=== PATIENT | female | born 1950 | race American Indian/Alaskan Native ===

== ENCOUNTER 2017-06-10 09:38 | Outpatient (CLI) | payer MEDICARE ==
--- NOTE | 2017-06-10 14:25 | Ultrasound Report ---
ULTRASOUND PELVIC COMPLETE ULTRASOUND TRANSVAGINAL HISTORY: Pelvic pain, adnexal fullness. TECHNIQUE: Transabdominal and transvaginal ultrasound with color doppler interrogation. The uterus is anteverted and measures 11 x 5 x 7 cm. A 6.5 x 5.8 cm submucosal fibroid is identified in the posterior fundal region. The fibroid contains scattered calcifications but no cystic change. The endometrial stripe is not clearly identified on ultrasound. No obvious endometrial abnormality. The right ovary is not visualized. The left ovary is unremarkable measuring 1.5 x 1.1 x 1.8 cm. No pelvic fluid collection. IMPRESSION: Uterine fibroid. The right ovary is not visualized. The left ovary is normal.
== END 2017-06-10 09:39 | disposition home or self-care (01) ==
LOC: US 09:38
PROVIDERS: ATTEND Internal Medicine
DX: D25.0 Submucous leiomyoma of uterus (principal); N94.9 Unspecified condition associated with female genital organs and menstrual cycle; N85.4 Malposition of uterus
CPT/HCPCS: 76830; 76856

== ENCOUNTER 2019-05-20 08:06 | Day surgery (SDC) | payer MEDICARE ==
[2019-05-20] MEDS ORDERED: MARCAINE 0.5% INFILTRATI ONE ×2 (08:22→10:20)
[2019-05-20] MEDS ORDERED: XYLOCAINE 1% 20 mL ONE (08:22)
[2019-05-20 09:04] VITALS: BP 149/77
[2019-05-20] MEDS ORDERED: XYLOCAINE 1% 20 mL INFILTRATI ONE (10:20)
--- NOTE | 2019-05-20 10:59 | Procedure Note ---
Date of procedure: 05/20/19 Pre-op diagnosis: chronic low back pain Post-op diagnosis: same Procedure: Lumbar facet blocks left L2-5 Procedure The patient was brought to the OR and placed prone onto the OR table, the lumbar spine was prepped and draped in the usual sterile manner. A timeout procedure was done to identify the patient and the correct levels of nerve block being performed the patient was awake during the procedure. Using C-arm fluoroscopy the L5 for an levels were visualized in both the PA and 45 oblique views 20- gauge spinal needles were inserted again under direct fluoroscopic control after placing the spinal needles and the correct position and Marcaine injection was performed using 1% without epinephrine. The patient tolerated the procedure and no complications Anesthesia: local Surgeon: BILLY BACH Estimated blood loss: minimal Condition: stable Disposition: observation
--- NOTE | 2019-05-20 15:04 | XRay Report ---
LUMBAR SPINE 2 VIEWS HISTORY: Intraoperative images at left facet injections L2-5. COMPARISON: 09/23/2018 TECHNIQUE: 2 view(s) of the lumbar spine obtained. FINDINGS: Vertebrae: Normal alignment. No fracture or significant abnormality. Disc Spaces:No significant abnormality. Facet Joints:[place] are identified at the L2, L3, L4 and L5 facet joints on the left. Additional findings: None. IMPRESSION: 1. Facet joints L2-5 localized for injections. Signer Name: Toby Riojas MD Signed: 05/20/2019 3:00 PM Workstation Name: [id number]
== END 2019-05-20 10:50 | disposition home or self-care (01) ==
LOC: OR 08:06
PROVIDERS: ATTEND Orthopaedic Surgery
DX: M54.5 Low back pain (principal); G89.29 Other chronic pain; Z88.0 Allergy status to penicillin; Z79.899 Other long term (current) drug therapy; Z87.891 Personal history of nicotine dependence; Z98.49 Cataract extraction status, unspecified eye; Z98.890 Other specified postprocedural states
CPT/HCPCS: 72100

== ENCOUNTER 2019-06-03 08:15 | Day surgery (SDC) | payer MEDICARE ==
--- NOTE | 2019-05-27 11:31 | Procedure Note ---
Date of procedure: 05/20/19 Pre-op diagnosis: chronic low back pain Post-op diagnosis: same Anesthesia: local Surgeon: BILLY BACH Estimated blood loss: minimal Condition: stable Disposition: observation
[~2019-06-03 08:15] MED LIST: DEPO-Medrol ONE; MARCAINE 0.5% INFILTRATI ONE; XYLOCAINE 1% 20 mL ONE
--- NOTE | 2019-06-03 09:39 | Anesthesia Day of Surgery ---
Anesthesia Day of Surgery - Day of Surgery Patient Examined: Yes Patient H&P Reviewed: Yes Patient is NPO: Yes
--- NOTE | 2019-06-03 09:39 | Anesthesia Consultation ---
Anesthesia Consult and Med Hx Date of service: 06/03/19 - Airway Anesthetic Teeth Evaluation: Partials ROM Head & Neck: Adequate Mental/Hyoid Distance: Adequate Mallampati Class: Class II Intubation Access Assessment: Good - Pulmonary Exam CTA: Yes - Cardiac Exam Cardiac Exam: RRR - Pre-Operative Health Status ASA Pre-Surgery Classification: ASA2 (obesity) Proposed Anesthetic Plan: MAC - Pulmonary Hx Smoking: Yes (STOPPED X 10 YRS) Hx Sleep Apnea: No (DEVON PRE SCREEN HIGH RISK) - Cardiovascular System Hx Hypertension: No - Central Nervous System Hx Back Pain: Yes (NECK AND BACK PAIN) - Other Systems Hx Cancer: No
[2019-06-03] MEDS ORDERED: LACTATED RINGERS 1,000 ML ONE (09:40)
[2019-06-03] MEDS ORDERED: DEPO-Medrol ONE ×2 (10:22→11:02)
[2019-06-03] MEDS ORDERED: VERSED ONE (10:41)
[2019-06-03] MEDS ORDERED: DILAUDID ONE (10:41)
[2019-06-03] MEDS ORDERED: DIPRIVAN 10 MG/ML IV ONE (10:41)
[2019-06-03] MEDS ORDERED: XYLOCAINE MPF 2% ONE (10:42)
[2019-06-03] MEDS ORDERED: MARCAINE 0.5% INFILTRATI ONE (11:15)
[2019-06-03] MEDS ORDERED: XYLOCAINE 1% 20 mL INFILTRATI ONE (11:15)
[2019-06-03] MEDS ORDERED: DEPO-Medrol INTRA-ARTI ONE (11:15)
[2019-06-03] MEDS ORDERED: ZOFRAN IV PRN (11:51)
[2019-06-03] MEDS: DILAUDID IV PRN ×2 (11:55→12:05)
[2019-06-03 12:38] VITALS: BP 160/74
--- NOTE | 2019-06-03 13:25 | Post Anesthesia Evaluation ---
- Post Anesthesia Evaluation Patient Participated: Yes Airway Patent: Yes Stable Respiratory Function: Yes Nausea/Vomiting: No Temp > 96.8F: Yes Pain Manageable: Yes Adequeate Hydration: Yes Anesthesia Complications: No Block Receding Appropriately: Not Applicable Patient on Ventilator: No
--- NOTE | 2019-06-03 15:57 | XRay Report ---
Lumbosacral spine, 2 views INDICATION: LOWER BACK PAIN. COMPARISON: None. IMPRESSION: Fluoroscopy was provided by radiology during lumbar radiofrequency ablation by Dr. Maxi peck. PA and lateral fluoroscopic images of the lumbar spine demonstrate needle placement from L2-L5 on the left side for radiofrequency ablation. There is moderate degenerative disc disease and hypertroph ic facet arthropathy at all levels. No evidence for fracture, malalignment or bone lesion. Please co rrelate with the procedural report as needed. 27 seconds of fluoroscopy time was utilized. Signer Name: Mike Abad Jr, MD Signed: 06/03/2019 3:52 PM Workstation Name: [id number]
[2019-06-03] MEDS ORDERED: LACTATED RINGERS 1,000 ML IV SCH (16:00)
== END 2019-06-03 13:05 | disposition home or self-care (01) ==
LOC: OR 08:15
PROVIDERS: ATTEND Orthopaedic Surgery
DX: M51.36 Other intervertebral disc degeneration, lumbar region (principal); M47.816 Spondylosis without myelopathy or radiculopathy, lumbar region; M12.88 Other specific arthropathies, not elsewhere classified, other specified site; Z87.891 Personal history of nicotine dependence; Z79.899 Other long term (current) drug therapy; Z88.0 Allergy status to penicillin; Z98.49 Cataract extraction status, unspecified eye; Z98.890 Other specified postprocedural states
CPT/HCPCS: 64493; 64494; 64495; 72100; A4649; J1030; J1170; J2250; J2704; J7120

== ENCOUNTER 2019-07-12 10:39 | Outpatient (CLI) | payer MEDICARE ==
--- NOTE | 2019-07-12 11:47 | XRay Report ---
Bilateral shoulders, 3 views INDICATION: BILATERAL SHOULER PAIN. COMPARISON: None. IMPRESSION: Normal bone mineralization. Moderate to severe osteoarthritic changes are identified at both shoulders. The left glenohumeral joint appears most affected. There is evidence for previous rot ator cuff repair on the right side. No evidence for fracture, dislocation or bone lesion. The soft t issues are unremarkable. Signer Name: Mike Abad Jr, MD Signed: 07/12/2019 11:42 AM Workstation Name: [id number]
== END 2019-07-12 10:40 | disposition home or self-care (01) ==
LOC: XRAY 10:39
PROVIDERS: ATTEND Orthopaedic Surgery
DX: M19.012 Primary osteoarthritis, left shoulder (principal); M19.011 Primary osteoarthritis, right shoulder

== ENCOUNTER 2019-09-14 11:59 | Outpatient (CLI) | payer MEDICARE ==
--- NOTE | 2019-09-15 10:56 | Mammography Report ---
DIGITAL SCREENING MAMMOGRAM WITH CAD, 09/14/2019 INDICATION: Routine screening mammography. TECHNIQUE: Digital bilateral 2D mammography was obtained in the craniocaudal and mediolateral obliq ue projections. This examination was interpreted with the benefit of Computer-Aided Detection analysi s. COMPARISON: 08/31/2018 FINDINGS: Breast Density: There are scattered areas of fibroglandular density. There is no evidence of dominant mass, suspicious calcifications or architectural distortion in eithe r breast. IMPRESSION: No mammographic evidence of malignancy. Follow up recommendation: Routine yearly No mammographic evidence of malignancy. A "normal" or negative report should not discourage follow up or biopsy of a clinically significant f inding. A written summary of these findings will be mailed to the patient. The patient will be entered into a mammography reporting system which will generate a reminder letter for the patient's next appointmen t at the appropriate interval. The [employer] recommends yearly mammograms starting at age 40 and continuing as l ladonna as a woman is in good health. Breast MRI is recommended for women with an approximate 20-25% or greater lifetime risk of breast cancer, including women with a strong family history of breast or ova violeta cancer or who have been treated for Hodgkin's disease. Signer Name: Toby Riojas MD Signed: 09/15/2019 10:52 AM Workstation Name: [id number]
== END 2019-09-14 12:00 | disposition home or self-care (01) ==
LOC: MAMMO 11:59
PROVIDERS: ATTEND Internal Medicine
DX: Z12.31 Encounter for screening mammogram for malignant neoplasm of breast (principal); Z88.0 Allergy status to penicillin
CPT/HCPCS: 77067

== ENCOUNTER 2020-09-15 09:35 | Outpatient (CLI) | payer MEDICARE ==
--- NOTE | 2020-09-15 11:57 | Mammography Report ---
DIGITAL SCREENING MAMMOGRAM WITH CAD, 09/15/2020 INDICATION: Routine screening mammography. TECHNIQUE: Digital bilateral 2D mammography was obtained in the craniocaudal and mediolateral obliq ue projections. This examination was interpreted with the benefit of Computer-Aided Detection analysi s. COMPARISON: 08/31/2018. FINDINGS: Breast Density: The breasts are almost entirely fatty. There is no evidence of dominant mass, suspicious calcifications or architectural distortion in eithe r breast. IMPRESSION: Follow up recommendation: Routine yearly BI-RADS Category 1: Negative. A "normal" or negative report should not discourage follow up or biopsy of a clinically significant f inding. A written summary of these findings will be mailed to the patient. The patient will be entered into a mammography reporting system which will generate a reminder letter for the patient's next appointmen t at the appropriate interval. The [employer] recommends yearly mammograms starting at age 40 and continuing as l ladonna as a woman is in good health. Breast MRI is recommended for women with an approximate 20-25% or greater lifetime risk of breast cancer, including women with a strong family history of breast or ova violeta cancer or who have been treated for Hodgkin's disease. Signer Name: Fracisco Farrar MD Signed: 09/15/2020 11:52 AM Workstation Name: [id number]
== END 2020-09-15 09:36 | disposition home or self-care (01) ==
LOC: MAMMO 09:35
PROVIDERS: ATTEND Internal Medicine
DX: Z12.31 Encounter for screening mammogram for malignant neoplasm of breast (principal)
CPT/HCPCS: 77067

== ENCOUNTER 2021-09-17 09:15 | Outpatient (CLI) | payer MEDICARE ==
--- NOTE | 2021-09-17 11:30 | Mammography Report ---
DIGITAL SCREENING MAMMOGRAM WITH CAD, 09/17/2021 CLINICAL INFORMATION / INDICATION: Routine screening mammography. Z12.31 TECHNIQUE: Digital bilateral 2D mammography was obtained in the craniocaudal and mediolateral obliqu e projections. This examination was interpreted with the benefit of Computer-Aided Detection analysis . COMPARISON: 09/15/2020, 09/14/2019, 08/31/2018 FINDINGS: Breast Density: There are scattered areas of fibroglandular density. No dominant mass, suspicious calcifications, or architectural distortion in either breast. IMPRESSION: No mammographic evidence of malignancy. Follow up recommendation: Routine yearly BI-RADS Category 1: Negative. A "normal" or negative report should not discourage follow up or biopsy of a clinically significant f inding. A written summary of these findings will be mailed to the patient. The patient will be entered into a mammography reporting system which will generate a reminder letter for the patient's next appointmen t at the appropriate interval. The [employer] recommends yearly mammograms starting at age 40 and continuing as l ladonna as a woman is in good health. Breast MRI is recommended for women with an approximate 20-25% or greater lifetime risk of breast cancer, including women with a strong family history of breast or ova violeta cancer or who have been treated for Hodgkin's disease. Signer Name: Abhay Minor DO Signed: 09/17/2021 11:26 AM Workstation Name: [id number]
== END 2021-09-17 09:16 | disposition home or self-care (01) ==
LOC: MAMMO 09:15
PROVIDERS: ATTEND Internal Medicine
DX: Z12.31 Encounter for screening mammogram for malignant neoplasm of breast (principal)
CPT/HCPCS: 77067